=== PATIENT | female | born 1960 | race Caucasian/White ===

== ENCOUNTER 2019-04-10 05:44 | Emergency (ER) | payer OTHER ==
[~2019-04-10] VITALS: Ht 154.9 cm; Wt 94.6 kg
[2019-04-10 05:48] VITALS: Ht 154.9 cm; Wt 94.6 kg
[2019-04-10] MEDS ORDERED: SOD CHLORIDE 0.9% 500 ML IV STA (06:07)
[2019-04-10] MEDS ORDERED: morphine 4 MG/ML VIAL IV STA (06:07)
[2019-04-10] MEDS ORDERED: ONDANSETRON 4 MG INJ IV STA (06:07)
[2019-04-10 07:22] VITALS: BP 134/96; PULSE 82; RESP 20
--- NOTE | 2019-04-10 08:12 | ERD ---
ER Documentation Chief Complaint Chief Complaint Pt reports abd pain x 3 days, n/v/d HPI 58-year-old female presents the emergency department complaining of epigastric abdominal pain. Patient states that on and off since October she has had a nonspecific epigastric abdominal pain. Over the last 3 days this is gotten worse. Pain is localized to the umbilical and epigastric part of her abdomen. It radiates to her left shoulder and her back. Its associated with no fevers or chills. Is associate with nausea, vomiting and a small amount of loose stool. She states the pain is localized in that area at this time and does not seem to radiate. It is not associated with a food intake. She reports no urinary or gynecologic symptoms. ROS All systems reviewed and are negative except as per history of present illness. Medications Home Meds Active Scripts Famotidine* (Pepcid*) 20 Mg Tablet, 20 MG PO BID for 4 Days, TAB Prov:CODY GRADY 04/10/19 Allergies Allergies: Coded Allergies: No Known Allergy (Unverified , 04/10/19) PMhx/Soc Hx Cardiac Disorders: Yes (htn, hld) Hx Alcohol Use: No Hx Substance Use: No Hx Tobacco Use: No Smoking Status: Never smoker Physical Exam Vitals Vital Signs Date Temp Pulse Resp B/P (MAP) Pulse Ox O2 O2 Flow FiO2 Time Delivery Rate 04/10/19 82 20 134/96 95 Room Air 07:22 (109) 04/10/19 98.8 75 24 158/71 100 05:48 (100) Physical Exam GENERAL: Obese female in no acute distress HEENT: Pupils equal, round, and reactive to light. EOMI. There is no scleral icterus. NECK: C-spine is soft and supple, there is no meningismus. There is no cervical lymphadenopathy. LUNGS: Clear to auscultation bilaterally. There are no rales, wheezes or rhonchi. HEART: Regular rate and rhythm, no murmurs, clicks, rubs or gallops. ABDOMEN: Soft, nondistended. She has mild tenderness to the epigastrium and periumbilical region with no rebound or guarding. The right lower quadrant is normal. There is no McBurney's point tenderness and no Masterson's sign. EXTREMITIES: There is no peripheral cyanosis or edema. No focal swelling or erythema. NEURO: The patient moves all four extremities with 5/5 strength. Cranial nerves II - XII are intact. Normal gait. Alert and oriented SKIN: There is no apparent rash or petechiae. HEME/LYMPHATIC: There is no evidence of excessive bruising or lymphedema. PSYCHIATRIC: The patient does not appear anxious or depressed. Result Diagram: 04/10/19 0650 04/10/19 0650 Results 24 hrs Laboratory Tests Test 04/10/19 06:50 04/10/19 07:15 White Blood Count 17.0 10^3/ul Red Blood Count 5.33 10^6/ul Hemoglobin 15.6 g/dl Hematocrit 46.4 % Mean Corpuscular Volume 87.1 fl Mean Corpuscular Hemoglobin 29.3 pg Mean Corpuscular Hemoglobin Concent 33.6 g/dl Red Cell Distribution Width 12.0 % Platelet Count 330 10^3/UL Mean Platelet Volume 11.0 fl Immature Granulocytes % 0.500 % Neutrophils % 88.0 % Lymphocytes % 6.2 % Monocytes % 4.3 % Eosinophils % 0.8 % Basophils % 0.2 % Nucleated Red Blood Cells % 0.0 /100WBC Immature Granulocytes # 0.080 10^3/ul Neutrophils # 15.0 10^3/ul Lymphocytes # 1.1 10^3/ul Monocytes # 0.7 10^3/ul Eosinophils # 0.1 10^3/ul Basophils # 0.0 10^3/ul Nucleated Red Blood Cells # 0.0 10^3/ul Sodium Level 140 mmol/L Potassium Level 4.5 mmol/L Chloride Level 102 mmol/L Carbon Dioxide Level 26 mmol/L Anion Gap 12 Blood Urea Nitrogen 13 mg/dl Creatinine 0.66 mg/dl Est Glomerular Filtrat Rate mL/min > 60 mL/min Glucose Level 321 mg/dl Calcium Level 9.8 mg/dl Total Bilirubin 0.6 mg/dl Direct Bilirubin 0.00 mg/dl Indirect Bilirubin 0.6 mg/dl Aspartate Amino Transf (AST/SGOT) 26 IU/L Alanine Aminotransferase (ALT/SGPT) 27 IU/L Alkaline Phosphatase 92 IU/L Troponin I < 0.012 ng/ml Total Protein 8.4 g/dl Albumin 4.6 g/dl Globulin 3.80 g/dl Albumin/Globulin Ratio 1.21 Lipase 89 U/L Urine Color YELLOW Urine Clarity CLEAR Urine pH 5.0 Urine Specific [place] 1.014 Urine Ketones TRACE mg/dL Urine Nitrite NEGATIVE mg/dL Urine Bilirubin NEGATIVE mg/dL Urine Urobilinogen NEGATIVE mg/dL Urine Leukocyte Esterase NEGATIVE [place]/ul Urine Hemoglobin NEGATIVE mg/dL Urine Glucose 3+ mg/dL Urine Total Protein NEGATIVE mg/dl Current Medications Medications Dose Sig/Eddie Start Time Status Last (Trade) Ordered Route PRN Stop Time Admin Dose Reason Admin Sodium 500 ml @ Q1H STAT 04/10/19 DC 04/10/19 Chloride 500 mls/hr IV 06:07 04/10/19 06:56 07:06 Morphine 4 mg ONCE STAT 04/10/19 DC 04/10/19 Sulfate IV 06:07 04/10/19 06:56 (morphine) 06:08 Ondansetron 4 mg ONCE STAT 04/10/19 DC 04/10/19 HCl (Zofran IV 06:07 04/10/19 06:56 Inj) 06:08 Procedures/MDM Patient was taken to a room, seen and evaluated. Comfort measures were initiated. Diagnostic tests were ordered and reviewed. 3 LEAD RHYTHM STRIP: Normal sinus rhythm without ectopy EK lead EKG reviewed by myself: Normal Sinus Rhythm Normal [place] and intervals No ST elevation, depression, or T wave inversion Impression: Normal EKG RADIOLOGY: Reviewed with the radiologist REEVALUATION: Initial diagnostic tests including her ultrasound were reviewed with no obvious diagnostic findings but an elevated white blood cell count. She continued to be uncomfortable. I then added a chest x-ray which demonstrated no obvious pneumonia. Upon second reevaluation she continued to have some nonspecific abdominal discomfort and given her diabetes and elevated white blood cell count, I ordered a CT scan to further evaluate the pain. 0925: CAT scan was reviewed demonstrating no signs of significant acute intra- abdominal pathology. So examinations of her abdomen remained benign. She stated that she felt better. Precautionary instructions including appendicitis precautions were discussed with the patient. MEDICAL DECISION MAKING: Patient presents with abdominal pain of uncertain etiology. Differential diagnosis considered includes appendicitis, diverticulitis, cholecystitis and other intra-abdominal medical and surgical concerns. I have also considered cardiac issues. I have reviewed the patient's lab studies and imaging as well as multiple examinations of the abdomen. Based on her clinical examination, her diagnosis is still somewhat unclear I am concerned about her elevated blood sugar and elevated white blood cell count, bu t she has no obvious source of infection including a normal urinalysis, normal CT scan, normal chest x-ray and otherwise benign exam. Patient will be treated supportively. I have sent a urine culture which will be followed and the patient will be called back if she continues to have ongoing symptoms and/or an abnormal urine culture. Overall, the patient appears to be clinically nontoxic and seems appropriate for discharge. Departure Diagnosis: Primary Impression: Abdominal pain Condition: CODY Garcia Apr 10, 2019 08:12
[2019-04-10] MEDS ORDERED: FAMO-96 PO (09:24)
== END 2019-04-10 09:55 | disposition home or self-care (01) ==
LOC: E/R 05:44
DX: R10.13 Epigastric pain (principal); R10.33 Periumbilical pain; I10 Essential (primary) hypertension; R40.2142 Coma scale, eyes open, spontaneous, at arrival to emergency department; R40.2252 Coma scale, best verbal response, oriented, at arrival to emergency department; R40.2362 Coma scale, best motor response, obeys commands, at arrival to emergency department
CPT/HCPCS: 36415; 71045; 74176; 76705; 80053; 81003; 83690; 84484; 85025; 87086; 93005; 96374; 96375; J2270; J2405; J7040; Z7502